=== PATIENT | female | born 1960 | race African-American/Black ===

== ENCOUNTER 2016-11-17 16:58 | Emergency (ER) | payer OTHER ==
[2016-11-17 17:05] VITALS: TEMP 98.1; BMI 34.3
--- NOTE | 2016-11-17 18:08 | PDOC ---
History of Present Illness - General Chief Complaint: Cold Symptoms Stated Complaint: PCP SENT Time Seen by Provider: 11/17/16 18:00 History Source: Patient - History of Present Illness Initial Comments: 11/17/16 18:46 Patient is a 56 y.o. female with a PMH of HTN and DLD who presents at the behest of her PCP following failed outpatient therapy for possible bronchitis with Levaquin as well as new onset of vertigo and generalized malaise. Patient notes 1 week previous she had fevers, chill, productive (whitish foamy sputum) cough that did not resolve with Levaquin (patient notes she completed entire 7 day course of abx). Patient notes since Sunday (11/13) she has experienced positional vertigo most often when moving from sitting to standing. Patient denies any sycope or head trauma and further notes she has increased her liquid PO intake over the past week. Patient also endorses current sore throat, rhinorhea and productive cough as well as chest and sinus congestion. Past History - Past History Allergies/Adverse Reactions: Allergies No Known Allergies Allergy (Verified 11/17/16 17:01) Home Medications: Ambulatory Orders Cyclobenzaprine HCl [Amrix] 15 mg PO HS 07/11/15 Ibuprofen [Motrin -] 400 mg PO PRN 07/11/15 Irbesartan/Hydrochlorothiazide [Avalide 150-12.5 mg Tablet] 1 each PO DAILY Ondansetron [Ondansetron Odt] 8 mg PO TID #30 tab.rapdis 07/11/15 Oxycodone Sr [Oxycontin] 2.5 mg PO PRN 07/11/15 Oxycodone Sr [Oxycontin] 10 mg PO BID 07/11/15 Sulfamethoxazole/Trimethoprim [Bactrim Ds Tablet] 1 each PO BID #14 tablet 07/19 - Social History Smoking History: No Smoking Status: Never smoked Number of Cigarettes Smoked Per Day: 0 Drug Use: none *Physical Exam - Vital Signs Last Vital Signs Temp Pulse Resp BP Pulse Ox 98.1 F 97 H 18 130/61 99 11/17/16 16:58 11/17/16 16:58 11/17/16 16:58 11/17/16 16:58 11/17/16 16:58
[2016-11-17] MEDS ORDERED: SODIUM CHLORIDE 0.9% 1000 ML INFUS.BAG IV ONE (18:21)
--- NOTE | 2016-11-17 18:21 | PDOC ---
Attending Attestation - Resident Resident Name: Jhoana Paulino - ED Attending Attestation I have performed the following: I have examined & evaluated the patient, The case was reviewed & discussed with the resident, I agree w/resident's findings & plan, Exceptions are as noted - Medical Decision Making 11/17/16 18:21 I, Dr. Janelle Garcia, DO, attest that this document has been prepared under my direction and personally reviewed by me in its entirety. I further attest, that it accurately reflects all work, treatment, procedures and medical decision -making performed by me. 11/17/16 18:54 a/p: 56yo female with chills and body aches. still with cough despite levaquin -will give another neb. will do flu swab. will check labs, ivf hydration, cxr, reassess concern for influenza vs pna that failed outpt abx. vs bronchospastic RAD s/p viral URI 11/17/16 18:56 pt will be signed out to the oncoming ED physician pending imaging, labs, re- eval. <Janelle Garcia - Last Filed: 11/17/16 18:56> - HPI HPI: 11/17/16 19:04 56 yr old female, with significant PMH of HTN, HLD, cervical spinal fusion, who presents to the emergency room sent into the ED by complaining of fever, chills, body aches, and productive cough with white sputum x7 days. She took mucinex and tylenol without relief so she visited Dr. Hooper in the office. He gave her a 7 day course of levaquin for possible Bronchitis - which she finished. She returned to the office today because her symptoms persisted. He gave her a nebulizer treatment and wanted to do a Chest Xray. Instead of going down to the [facility] for the CXR, she came to the ED instead. PMD: Dr. Glenn Hooper - Physicial Exam PE: 11/17/16 19:05 Constitutional: Awake, alert, oriented. No acute distress. Appears unwell. Warm to the touch. Head: Normocephalic. Atraumatic Eyes: PERRL. EOMI. Conjunctivae are not pale. ENT: Mucous membranes are moist and intact. Posterior pharynx without exudates or erythema. Uvula midline. Neck: Supple. Full ROM. No lymphadenopathy. Cardiovascular: Tachycardic.. Regular rhythm. S1, S2 regular. Distal pulses are 2+ and symmetric. Pulmonary/Chest: +mild expiratory wheezing bilaterally. No evidence of respiratory distress. Clear to auscultation bilaterally No rales or rhonchi. Abdominal: Soft and non-distended. There is no tenderness. No rebound, guarding or rigidity. No organomegaly. No palpable masses. Good bowel sounds. Back: No CVA tenderness. Musculoskeletal: No edema. No cyanosis. No clubbing. Full range of motion in all extremities. Nocalf tenderness. Radial/pedal pulses are intact and 2+ bilaterally Skin: Skin is warm and dry. No petechiae. No purpura. Neurological: Alert and oriented to person, place, and time. Cranial nerves II -XII are grossly intact. Normal speech. Strength is grossly symmetric. No sensory deficits. Psychiatric: Good eye contact. Normal interaction, affect and behavior. <Brittany Escalera - Last Filed: 11/17/16 19:05>
[2016-11-17] MEDS ORDERED: ONDANSETRON 4 MG/2 ML VIAL IVPUSH ONE (18:50)
[2016-11-17] MEDS ORDERED: ALBUTEROL SO4 2.5/IPRATROPIUM 0.5 INH SOL 3 ML VIAL.NEB. NEB ONE ×3 (18:50→23:54)
[2016-11-17] MEDS ORDERED: FAMOTIDINE 20 MG/50 ML IVPB 50 ML IVPB ONE ×2 (18:50→19:19)
--- NOTE | 2016-11-17 18:51 | PDOC ---
History of Present Illness - General Chief Complaint: Cold Symptoms Stated Complaint: PCP SENT Time Seen by Provider: 11/17/16 18:00 History Source: Patient - History of Present Illness Initial Comments: 11/17/16 18:51 Patient is a 56 y.o. female with a PMH of HTN and DLD who presents at the behest of her PCP following failed outpatient therapy for possible bronchitis with Levaquin as well as new onset of vertigo and generalized malaise. Patient notes 1 week previous she had fevers, chill, productive (whitish foamy sputum) cough that did not resolve with Levaquin (patient notes she completed entire 7 day course of abx). Patient notes since Sunday (11/13) she has experienced positional vertigo most often when moving from sitting to standing. Patient denies any syncope or head trauma and further notes she has increased her liquid PO intake over the past week. Patient also endorses current sore throat, rhinorrhea and productive cough as well as chest and sinus congestion. Past History - Past Medical History Allergies/Adverse Reactions: Allergies Allergy/AdvReac Type Severity Reaction Status Date / Time No Known Allergies Allergy Verified 11/17/16 17:01 Home Medications: Ambulatory Orders Cyclobenzaprine HCl [Amrix] 15 mg PO HS 07/11/15 Ibuprofen [Motrin -] 400 mg PO PRN 07/11/15 Irbesartan/Hydrochlorothiazide [Avalide 150-12.5 mg Tablet] 1 each PO DAILY Ondansetron [Ondansetron Odt] 8 mg PO TID #30 tab.rapdis 07/11/15 Oxycodone Sr [Oxycontin] 2.5 mg PO PRN 07/11/15 Oxycodone Sr [Oxycontin] 10 mg PO BID 07/11/15 Sulfamethoxazole/Trimethoprim [Bactrim Ds Tablet] 1 each PO BID #14 tablet 07/19 HTN: Yes - Surgical History Neurologic Surgery: Yes (LUMBAR LAMINECTOMY. CERVICAL FUSION.) - Suicide/Smoking/Psychosocial Hx Smoking Status: No Smoking History: Never smoked Number of Cigarettes Smoked Daily: 0 Hx Alcohol Use: No Drug/Substance Use Hx: No Substance Use Type: None Review of Systems - Review of Systems Constitutional: Yes: Chills, Fever, Weakness Respiratory: Yes: Cough, Shortness of Breath Cardiac (ROS): Yes: Chest Pain, Lightheadedness ABD/GI: No: Diarrhea, Nausea, Vomiting : No: Burning, Dysuria Neurological: Yes: Weakness All Other Systems: Reviewed and Negative *Physical Exam - Vital Signs Last Vital Signs Temp Pulse Resp BP Pulse Ox 98.1 F 97 H 18 130/61 99 11/17/16 16:58 11/17/16 16:58 11/17/16 16:58 11/17/16 16:58 11/17/16 16:58 - Physical Exam General Appearance: Yes: Nourished, Appropriately Dressed HEENT: positive: Rhinorrhea. negative: Sinus Tenderness, TM Bulging, TM Dull, TM Erythema Neck: positive: Trachea midline, Supple Respiratory/Chest: positive: Lungs Clear, Normal Breath Sounds. negative: Respiratory Distress, Accessory Muscle Use, Rhonchi, Wheezing Cardiovascular: positive: Regular Rhythm, Regular Rate, S1, S2 Gastrointestinal/Abdominal: positive: Soft Integumentary: positive: Normal Color, Dry, Warm Neurologic: positive: Fully Oriented, Alert ED Treatment Course - LABORATORY CBC & Chemistry Diagram: 11/17/16 19:08 11/17/16 19:08 - RADIOLOGY Radiology Studies Ordered: Category Date Time Status CHEST PA & LAT [RAD] Stat Radiology 11/17/16 18:19 Ordered Medical Decision Making - Medical Decision Making 11/17/16 18:53 Patient is a 56 y.o. female who presents for persistent viral URI symptom following outpatient Levaquin therapy as well as some associated vertigo for the past 2-3 days. Initial DDx includes pneumonia vs. bronchitis vs. viral URI vs. influenza PLAN: 1. CBC, CMP, Mg 2. CXR 3. Influenza Nasal swab 4. Orthostatic VS Patient signed out to Dr. Glenn Haley (Resident) and Dr. Bee Gutierrez ( Attending) *DC/Admit/Observation/Transfer Diagnosis at time of Disposition: Cough - Referrals Referrals: Glenn Hooper MD [Primary Care Provider] -
[2016-11-17 19:17] LABS: BASOPHIL 1.1 % (0-2.0); EOSINOPHIL 0.8 % (0-4.5); MCH 29.6 pg (25.7-33.7); MCHC 32.6 g/dl (32.0-36.0); MEAN CELL VOLUME 90.7 fl (80-96); MEAN PLT VOLUME 11.8 fl (7.5-11.1); PLATELET COUNT 192 K/MM3 (134-434); RDW 14.7 % (11.6-15.6); WHITE BLOOD COUNT 7.1 K/mm3 (4.0-10.0)
[2016-11-17] MEDS ORDERED: ONDANSETRON 4 MG/2 ML VIAL ONE (19:19)
[2016-11-17 19:41] LABS: ALBUMIN 3.7 g/dl (3.4-5.0); ANION GAP 6 (8-16); CALCIUM 9.7 mg/dL (8.5-10.1); CO2 30 mmol/L (21-32); GLUCOSE,RANDOM 94 mg/dL (74-106); MAGNESIUM 2.4 mg/dL (1.8-2.4); SGOT/AST 22 U/L (15-37); SGPT/ALT 45 U/L (12-78)
[2016-11-17 19:44] LABS: ALK PHOS 147 U/L (45-117); BILIRUBIN,TOTAL 0.3 mg/dL (0.2-1.0); CREATININE 0.7 mg/dL (0.55-1.02); TOT PROT 7.9 g/dl (6.4-8.2)
--- NOTE | 2016-11-17 20:32 | PDOC ---
*Physical Exam - Vital Signs Last Vital Signs Temp Pulse Resp BP Pulse Ox 98.1 F 97 H 18 130/61 99 11/17/16 16:58 11/17/16 16:58 11/17/16 16:58 11/17/16 16:58 11/17/16 16:58 - Physical Exam Comments: 11/17/16 20:31 GENERAL: Awake, alert, and fully oriented, in no acute distress HEAD: No signs of trauma, normocephalic, atraumatic EYES: PERRLA, EOMI, sclera anicteric, conjunctiva clear ENT: Auricles normal inspection, hearing grossly normal, nares patent, oropharynx clear without exudates. Moist mucosa NECK: Normal ROM, supple, no lymphadenopathy, JVD, or masses LUNGS: No distress, speaks full sentences, clear to auscultation bilaterally HEART: Regular rate and rhythm, normal S1 and S2, no murmurs, rubs or gallops, peripheral pulses normal and equal bilaterally. NEUROLOGICAL: Cranial nerves II through XII grossly intact. Normal speech, no focal sensorimotor deficits SKIN: Warm, Dry, normal turgor, no rashes or lesions noted. ED Treatment Course - LABORATORY CBC & Chemistry Diagram: 11/17/16 19:08 11/17/16 19:08 - ADDITIONAL ORDERS Additional order review: Laboratory Results 11/17/16 19:08 Sodium 140 Potassium 3.8 Chloride 104 Carbon Dioxide 30 Anion Gap 6 L BUN 11 D Creatinine 0.7 Creat Clearance w eGFR > 60 Random Glucose 94 Calcium 9.7 Magnesium 2.4 Total Bilirubin 0.3 D AST 22 D ALT 45 Alkaline Phosphatase 147 H D Total Protein 7.9 Albumin 3.7 11/17/16 19:08 RBC 4.40 MCV 90.7 MCHC 32.6 RDW 14.7 MPV 11.8 H Neutrophils % 50.0 D Lymphocytes % 39.5 D Monocytes % 8.6 D Eosinophils % 0.8 Basophils % 1.1 D - Medications Given in the ED: ED Medications Discontinued Medications Generic Name Dose Route Start Last Admin Trade Name Freq PRN Reason Stop Dose Admin Albuterol/Ipratropium 1 amp 11/17/16 18:50 11/17/16 19:28 Duoneb - NEB 11/17/16 18:51 1 amp ONCE ONE Administration Famotidine/Sodium Chloride 50 mls @ 100 mls/hr 11/17/16 18:50 11/17/16 19:28 Pepcid 20 Mg Premixed Ivpb - IVPB 11/17/16 19:19 100 mls/hr ONCE ONE Administration Ondansetron HCl 4 mg 11/17/16 18:50 11/17/16 19:28 Zofran Injection IVPUSH 11/17/16 18:51 4 mg ONCE ONE Administration Sodium Chloride 1,000 ml 11/17/16 18:21 11/17/16 19:15 Normal Saline - IV 11/17/16 18:22 1,000 ml ONCE ONE Administration Medical Decision Making - Medical Decision Making 11/17/16 20:32 Laboratory Tests 11/17/16 11/17/16 19:08 19:08 WBC 7.1 D Hgb 13.0 Hct 39.9 Plt Count 192 Anion Gap 6 L CBC normal, CMP shows no gap and is reassuring. CXR pending. 11/17/16 20:34 EKG shows normal sinus rhythm, normal rate, normal axis, no st elevations/ depression, no t-wave abnormalities 11/17/16 21:08 CXR shows no acute cardiopulmonary processes or infiltrates. 11/17/16 21:08 Flu negative. 11/17/16 21:46 Selected Entries 11/17/16 20:58 Blood Pressure 119/62 [Left side Sitting] Blood Pressure 95/62 [Left side Standing] Blood Pressure 95/75 [Left side Supine] No orthostatic hypotension. Patients weakness and lightheadedness has improved with fluids. No cerebelllar signs on exam, normal neuro repeat exam. No cerebellar signs on exam. Will discharge with PCP follow up. *DC/Admit/Observation/Transfer Diagnosis at time of Disposition: Cough, Lightheadedness - Prescriptions Prescriptions: Albuterol Sulfate Inhaler - [Ventolin HFA Inhaler -] 1 - 2 inh PO QID #1 inhaler - Referrals Referrals: Glenn Hooper MD [Primary Care Provider] - - Patient Instructions Printed Discharge Instructions: DI for Viral Upper Respiratory Infection -- Adult - Post Discharge Activity
[2016-11-17 20:59] VITALS: BP 95/75; PULSE 79
--- NOTE | 2016-11-17 23:57 | PDOC ---
*Physical Exam - Vital Signs Last Vital Signs Temp Pulse Resp BP Pulse Ox 98.1 F 79 18 95/75 99 11/17/16 16:58 11/17/16 20:58 11/17/16 16:58 11/17/16 20:58 11/17/16 16:58 - Physical Exam General Appearance: Yes: Nourished Respiratory/Chest: positive: Lungs Clear, Normal Breath Sounds, Other (only wheezing with cough). negative: Respiratory Distress Cardiovascular: positive: Regular Rhythm, Regular Rate, S1, S2 ED Treatment Course - LABORATORY CBC & Chemistry Diagram: 11/17/16 19:08 11/17/16 19:08 - ADDITIONAL ORDERS Additional order review: Laboratory Results 11/17/16 19:08 Sodium 140 Potassium 3.8 Chloride 104 Carbon Dioxide 30 Anion Gap 6 L BUN 11 D Creatinine 0.7 Creat Clearance w eGFR > 60 Random Glucose 94 Calcium 9.7 Magnesium 2.4 Total Bilirubin 0.3 D AST 22 D ALT 45 Alkaline Phosphatase 147 H D Total Protein 7.9 Albumin 3.7 11/17/16 19:08 Influenza Types A,B Antigen (ME[facility]UL) - Final Nasopharyngeal Swab - Final 11/17/16 19:08 RBC 4.40 MCV 90.7 MCHC 32.6 RDW 14.7 MPV 11.8 H Neutrophils % 50.0 D Lymphocytes % 39.5 D Monocytes % 8.6 D Eosinophils % 0.8 Basophils % 1.1 D - Medications Given in the ED: ED Medications Discontinued Medications Generic Name Dose Route Start Last Admin Trade Name Billq PRN Reason Stop Dose Admin Albuterol/Ipratropium 1 amp 11/17/16 18:50 11/17/16 19:28 Duoneb - NEB 11/17/16 18:51 1 amp ONCE ONE Administration Famotidine/Sodium Chloride 50 mls @ 100 mls/hr 11/17/16 18:50 11/17/16 19:28 Pepcid 20 Mg Premixed Ivpb - IVPB 11/17/16 19:19 100 mls/hr ONCE ONE Administration Ondansetron HCl 4 mg 11/17/16 18:50 11/17/16 19:28 Zofran Injection IVPUSH 11/17/16 18:51 4 mg ONCE ONE Administration Sodium Chloride 1,000 ml 11/17/16 18:21 10/06/17 19:15 Normal Saline - IV 11/17/16 18:22 1,000 ml ONCE ONE Administration Medical Decision Making - Medical Decision Making 11/17/16 23:54 56 yo F with bronchitis, recently started on levaquin, here for evaluation, tx with duonebs, and cxr. pt signed out to me at 7 pm. labs and cxr reviewed, labs normal. dc home following duoneb. pt explained regarding follow up plan and went over all results. *DC/Admit/Observation/Transfer Diagnosis at time of Disposition: Cough, Lightheadedness, Bronchitis - Discharge Dispostion Disposition: HOME Condition at time of disposition: Improved Admit: No - Prescriptions Prescriptions: Albuterol Sulfate Inhaler - [Ventolin HFA Inhaler -] 1 - 2 inh PO QID #1 inhaler - Referrals Referrals: Glenn Hooper MD [Primary Care Provider] - - Patient Instructions Printed Discharge Instructions: DI for Viral Upper Respiratory Infection -- Adult, DI for Acute Bronchitis Additional Instructions: you can use albuterol inhaler 2 puffs every 4 hours to help with wheezing and spasmodic cough. drink plenty of fluids, get plenty of rest. follow up with dr hooper as needed. - Post Discharge Activity
--- NOTE | 2016-11-18 19:08 | EKG ---
Test Reason : Blood Pressure : / mmHG Vent. Rate : 081 BPM Atrial Rate : 081 BPM P-R Int : 206 ms QRS Dur : 114 ms QT Int : 412 ms P-R-T Axes : 070 006 054 degrees QTc Int : 478 ms NORMAL SINUS RHYTHM ATRIAL ABNORMALITY RSR' OR QR PATTERN IN V1 SUGGESTS RIGHT VENTRICULAR CONDUCTION DELAY WHEN COMPARED WITH ECG OF 11-JUL-2015 05:56, QRS DURATION HAS INCREASED APPEARANCE OF RSR' CLINICAL CORRELATION IS RECOMMENDED Confirmed by ANNIKA NEGRON MD ([id number]) on 11/18/2016 7:07:40 PM Referred By: Confirmed By:ANNIKA NEGRON MD
== END 2016-11-18 00:16 | disposition home or self-care (01) ==
LOC: JER 16:58 → SUPCPDRO 16:58 → JER 11-18 00:16
PROC: 3E033GC Introduction of Other Therapeutic Substance into Peripheral Vein, Percutaneous Approach (ICD-10-PCS; principal; 2016-11-17)
PROC: 3E0337Z Introduction of Electrolytic and Water Balance Substance into Peripheral Vein, Percutaneous Approach (ICD-10-PCS; 2016-11-17)
PROC: 3E0F7GC Introduction of Other Therapeutic Substance into Respiratory Tract, Via Natural or Artificial Opening (ICD-10-PCS; 2016-11-17)
DX: R05 Cough (principal); R42 Dizziness and giddiness; J40 Bronchitis, not specified as acute or chronic; I10 Essential (primary) hypertension
CPT/HCPCS: 36415; 71020-TC; 80053; 83735; 85025; 87804; 93005; 93010; 99281-25